=== PATIENT | female | born 1955 | race Caucasian/White ===

== ENCOUNTER → 2023-08-22 | Outpatient (CLI) | payer MEDICARE, MEDICAID, SELFPAY ==
--- NOTE | 2023-08-22 14:31 | NEURO ---
NCS and/or EMG Patient Report Ordering Doctor: BETY CONTRERAS DATE OF SERVICE: 08/22/23 Minerva presents for electrodiagnostic testing of the left upper and left lower limb. She reports an inability to ambulate and complains of numbness and tingling in her left hand. Electrodiagnostic findings: Left median motor nerve demonstrates prolonged latency with normal amplitude and conduction velocity. Left ulnar motor response within normal limits, including conduction across the elbow. Left peroneal motor nerve demonstrates normal distal latency with reduced amplitude and borderline reduced conduction velocity. No significant drop in conduction across the fibular head. Left tibial motor responses within normal limits. Prolonged left tibial F?wave. Needle EMG testing was performed in the left upper and left lower limb. Complex repetitive discharges are noted in the left pronator teres and left flexor carpi ulnaris. 1+ fibrillations are noted in the left tibialis anterior. 1+ fibrillations were noted in the left first dorsal interosseous. Decreased recruitment pattern noted in the left deltoid and left triceps. Electrodiangostic Assessment: 1. Electrodiagnostic findings suggestive of left-sided median mononeuropathy. This consistent with a mild to moderate left carpal tunnel syndrome 2. Electrodiagnostic findings are suggestive of chronic denervation in the left C7 dermatome, possibly suggestive of chronic left C7 radiculopathy. 3. 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 Multi Select Codes Neurology Neurology Interp Codes: 40707-01 Musc test done w/n test comp (interp) (2) and 12769-63 Nrv cndj test 9-10 studies (interp)
== END | disposition home or self-care (01) ==
LOC: PSN 11:55
PROVIDERS: PCP Student in an Organized Health Care Education/Training Program; Referring Provider Psychiatry & Neurology Neurology; Visit Provider Psychiatry & Neurology Neurology
DX: G62.9 Polyneuropathy, unspecified (principal)
CPT/HCPCS: 95886; 95912